=== PATIENT | male | born 1990 | race Caucasian/White ===

== ENCOUNTER 2022-07-18 13:23 | Emergency (ER) | payer MEDICAID ==
[~2022-07-18] VITALS: Ht 177.8 cm; Wt 89.8 kg
== END 2022-07-18 14:07 | disposition home or self-care (01) ==
LOC: ED 13:23
DX: K08.89 Other specified disorders of teeth and supporting structures (principal)
CPT/HCPCS: 99283

== ENCOUNTER 2023-11-14 07:15 | Emergency (ER) | payer OTHER ==
[~2023-11-14] VITALS: Ht 177.8 cm; Wt 94.3 kg
[~2023-11-14 07:15] MED LIST: PENICILLIN V P500 MG PO; SERTRALINE HCL50 MG PO
[2023-11-14] MEDS ORDERED: PENICILLIN V P500 MG PO (07:30)
[2023-11-14 07:55] VITALS: BP 139/94
== END 2023-11-14 07:57 | disposition home or self-care (01) ==
LOC: ED 07:15
DX: K04.7 Periapical abscess without sinus (principal); S02.5XXA Fracture of tooth (traumatic), initial encounter for closed fracture; Z79.899 Other long term (current) drug therapy
CPT/HCPCS: 99282

== ENCOUNTER 2024-05-15 10:51 | Emergency (ER) | payer OTHER ==
[~2024-05-15] VITALS: Ht 177.8 cm; Wt 96.6 kg
[2024-05-15 11:39] VITALS: BP 137/88
== END 2024-05-15 11:39 | disposition home or self-care (01) ==
LOC: ED 10:51
DX: S93.402A Sprain of unspecified ligament of left ankle, initial encounter (principal); X50.1XXA Overexertion from prolonged static or awkward postures, initial encounter; Y93.67 Activity, basketball
CPT/HCPCS: 73610; 99283